=== PATIENT | male | born 1975 | race Two or more races ===

== ENCOUNTER 2019-09-25 09:04 | Day surgery (SDC) | payer OTHER ==
[2019-09-25] VITALS (13 sets, daily range): BP systolic 132–161; BP diastolic 76–102
[~2019-09-25] VITALS: Ht 177.8 cm; Wt 84.4 kg
--- NOTE | 2019-09-25 07:47 | Pre-Procedure Note/Attestation ---
Pre-Procedure Note/Attestation Complete Prior to Procedure Planned Procedure: left Procedure Narrative: clavicle orif Indications for Procedure Pre-Operative Diagnosis: left clavicle fracture Attestation I attest that I discussed the nature of the procedure; its benefits; risks and complications; and alternatives (and the risks and benefits of such alternatives ), prior to the procedure, with the patient (or the patient's legal sales representative door to door). I attest that, if there was a reasonable possibility of needing a blood transfusion, the patient (or the patient's legal sales representative door to door) was given the [facility] standardized written summary, pursuant to the [place] Blood Safety Act ([place] Health and Safety Code # 1645, as amended). I attest that I re-evaluated the patient just prior to the surgery and that there has been no change in the patient's H&P, except as documented below: Blake Chappell MD Sep 25, 2019 07:47
--- NOTE | 2019-09-25 07:48 | Operative Note - PDOC ---
Operative Note Operative Note Pre-op Diagnosis: left clavicle fracture Procedure: see op report Post-op Diagnosis: same as pre-op plus Operative Findings: consistent w/pre-op dx studies Anesthesia: regional Specimen: none Complications: none Condition: stable Estimated Blood Loss: none Implant(s) used?: Yes Blake Chappell MD Sep 25, 2019 07:48
[~2019-09-25 09:04] MED LIST: HYDROcodone/Acetamin 5/325 tab ORAL PRN; HYDROmorphone 1mg/ml Carpuject SUBQ PRN; PROAIR HFA8.5 GM INH; Tylenol #3 tab (300mg/30mg) ORAL PRN; ceFAZolin 1gm IVPB IVPB ONE; celeBREX 200mg Cap **SURGERY PATIENTS ONLY ORAL ONE; oxyCONTIN 20mg tab ORAL ONE
[2019-09-25] MEDS ORDERED: NS Irrig 1000ml ONE (09:05)
[2019-09-25] MEDS ORDERED: Sterile Water Irrig 1000ml IRRIG ONE (09:05)
[2019-09-25] MEDS ORDERED: oxyCONTIN 20mg tab ORAL ONE (09:38)
[2019-09-25] MEDS ORDERED: celeBREX 200mg Cap **SURGERY PATIENTS ONLY ORAL ONE (09:38)
[2019-09-25] MEDS ORDERED: fentaNYL 100 mcg/2 mL IV ONE (10:27)
[2019-09-25] MEDS ORDERED: Midazolam 2mg/2ml Inj ONE (10:28)
[2019-09-25] MEDS ORDERED: Propofol 200mg/20ml IV ONE (10:31)
[2019-09-25] MEDS ORDERED: Lidocaine 1% MPF 10mg/ml 5ml ONE (10:31)
[2019-09-25] MEDS ORDERED: Bacitracin 50000 Units Vial ONE (11:05)
[2019-09-25] MEDS ORDERED: NeoSporin Gu Irrig 1ml Amp IRRIG ONE (11:05)
[2019-09-25] MEDS ORDERED: Lidocaine 1% 10mg/ml/Epi 0.005mg/ml 30ml vial INJ ONE (11:05)
--- NOTE | 2019-09-25 12:12 | Anethesia Preoperative Eval ---
Anesthesia Pre-op PMH/ROS General Date of Evaluation: Sep 25, 2019 Time of Evaluation: 11:05 Anesthesiologist: Jess ASA Score: ASA 2 Mallampati Score Class I : Soft palate, uvula, fauces, pillars visible Class II: Soft palate, uvula, fauces visible Class III: Soft palate, base of uvula visible Class IV: Only hard plate visible Mallampati Classification: Class II Surgeon: Ta Diagnosis: L clavicle Fx Surgical Procedure: ORIF of L clavicle Fx Anesthesia History: none Family History: no anesthesia problems Allergies: Coded Allergies: No Known Allergies (Unverified , 09/23/19) Medications: see eMAR Patient NPO?: Yes Past Medical History Cardiovascular: Denies: HTN, CAD, AR, valve dz, arrhythmia, other Pulmonary: Reports: asthma - mild stable on inhaler; Denies: COPD, JOHN, other Gastrointestinal/Genitourinary: Reports: GERD; Denies: CRI, ESRD, other Neurologic/Psychiatric: Denies: dementia, CVA, depression/anxiety, TIA, other Endocrine: Denies: DM, hypothyroidism, steroids, other HEENT: Denies: cataract (L), cataract (R), glaucoma, LITTLE TRAVERSE (L), LITTLE TRAVERSE (R), other Hematology/Immune: Denies: anemia, DVT, bleeding disorder, other Musculoskeletal/Integumentary: Denies: OA, RA, DJD, DDD, edema, other PMH Narrative: as above PSxH Narrative: R eye Sx as a child Anesthesia Pre-op Phys. Exam Physician Exam Last Vital Signs Date Time Temp Pulse Resp B/P (MAP) Pulse Ox O2 Delivery O2 Flow Rate FiO2 09/25/19 09:42 Room Air 09/25/19 09:40 98.0 71 18 142/76 99 Constitutional: NAD Neurologic: CN 2-12 intact Cardiovascular: RRR, no M/R/G Respiratory: CTA Gastrointestinal: S/NT/ND Airway Exam Mallampati Score: Class II MO: full Neck: flexible ROM: full Teeth: intact Dentures: no upper, no lower Anesthesia Pre-op A/P Labs see chart Studies Pre-op Studies: EKG - NSR Risk Assessment & Plan Assessment: ASA 2 Plan: GA with LMA brachial plexus block for p/op pain control Status Change Before Surgery: No Pre-Antibiotics Drug: Ancef 2gr. Given Within 1 Hr of Incision: Yes Time Given: 11:54 Mitesh Mercado MD Sep 25, 2019 12:12
[2019-09-25] MEDS ORDERED: LR 1000ml 1,000 ML IVLG SCH (12:13)
[2019-09-25] MEDS ORDERED: DiphenhydrAMINE 50mg/ml Inj IVP PRN (12:15)
[2019-09-25] MEDS ORDERED: Ketorolac 30mg Inj IV PRN (12:15)
[2019-09-25] MEDS ORDERED: Meperidine 25mg/0.5ml Inj (FOR RIGORS ONLY) IV PRN (12:15)
[2019-09-25] MEDS ORDERED: Acetaminophen (Non formulary) 100 ML IV ONE (12:15)
[2019-09-25] MEDS ORDERED: Morphine Sulfate 10mg/ml Inj ONE (12:19)
[2019-09-25] MEDS ORDERED: Sodium Chloride 10ml vial INJ ONE (12:20)
[2019-09-25] MEDS ORDERED: Ketorolac 30mg Inj ONE (12:20)
--- NOTE | 2019-09-25 13:12 | Immediate Post-Op Evaluation ---
Immediate Post-Op Evalulation Immediate Post-Op Evalulation Procedure: ORIF of L clavicle Fx Date of Evaluation: Sep 25, 2019 Time of Evaluation: 13:11 IV Fluids: 800 Blood Products: none Estimated Blood Loss: <50 Urinary Output: none Blood Pressure Systolic: 148 Blood Pressure Diastolic: 72 Pulse Rate: 68 Respiratory Rate: 20 O2 Sat by Pulse Oximetry: 99 Temperature (Fahrenheit): 98.4 Pain Score (1-10): 1 Nausea: No Vomiting: No Complications none Patient Status: reacts, patent, none Hydration Status: adequate Mitesh Mercado MD Sep 25, 2019 13:11
--- NOTE | 2019-09-25 14:03 | 48 Hour Post Anesthesia Eval ---
Post Anesthesia Evaluation Procedure: ORIF of L clavicle Fx Date of Evaluation: Sep 25, 2019 Time of Evaluation: 14:01 Blood Pressure Systolic: 142 0: 86 Pulse Rate: 74 Respiratory Rate: 22 Temperature (Fahrenheit): 97.6 O2 Sat by Pulse Oximetry: 98 Airway: patent Nausea: No Vomiting: No Pain Intensity: 2 Hydration Status: adequate Cardiopulmonary Status: stable Mental Status/LOC: patient returned to baseline Follow-up Care/Observations: n/a Post-Anesthesia Complications: none Follow-up care needed: ready to discharge Mitesh Mercado MD Sep 25, 2019 14:02
--- NOTE | 2019-09-25 14:23 | Diagnostic Imaging Report ---
INDICATION: Pain, intraoperative TECHNIQUE: Intraoperative imaging Fluoroscopy time: 6 seconds Total dose: 0.30762 mGym2 Total number of images: 2 COMPARISON: None FINDINGS: Intraoperative images document surgical repair with side plate and screws of mid shaft left clavicular fracture IMPRESSION: Intraoperative imaging, as described
[2019-09-25] MEDS ORDERED: D5 1/2NS 1,000 ML IV SCH (18:00)
--- NOTE | 2019-09-25 19:30 | Operative Note - Dictated ---
DATE OF OPERATION: 09/25/2019 PREOPERATIVE DIAGNOSIS: Left displaced midshaft clavicle fracture. POSTOPERATIVE DIAGNOSIS: Left displaced midshaft clavicle fracture. PROCEDURE: Open reduction internal fixation of left midshaft displaced clavicle fracture. SURGEON: Blake Chappell M.D. ANESTHESIA: LMA. INDICATION FOR PROCEDURE: Patient is a pleasant gentleman, who has had a significant injury to the left ankle. He had displaced clavicle fracture with significant displacement indicative of operative fixation. Risks, limitations, expectations, and complications of procedure were discussed in detail. All questions addressed. DESCRIPTION OF PROCEDURE: After informed consent was obtained, patient was brought to operating room. Patient was placed under general anesthesia. Patient then carefully placed in beach chair position. Left shoulder was prepped and draped in a sterile manner. At this point, the medial and lateral aspects of the fracture was identified. This skin was incised. I tried to use straight lines incorporating his extensive tattoos. A full-thickness subcutaneous tissue flaps were created. At this point, the trapezius and deltoid were peeled off the medial and lateral fragments of the fracture and making sure to stay right on the bone. Subperiosteal dissection was performed on the distal ends. There was significant muscle that was interposed between the fracture fragments significant overlapping. Once the ends of the fracture were gently mobilized, reduction maneuver was performed. An 8-hole plate was selected and cortical screws were placed on synch down the plate. The imaging showed good anatomic reduction. At this point, additional 4 cortical screws were placed. Imaging studies showed good placement and length of the screws. At this point, the wound was copiously irrigated. The fascia was approximated with #1 Vicryl suture. Subcutaneous tissue was approximated with 2-0 Vicryl suture. Skin was closed with 3-0 Monocryl sutures. A Dermabond and compression dressing was applied. Patient was awoken and taken to recovery room with stable signs. ESTIMATED BLOOD LOSS: 25 mL. COMPLICATIONS: None. SPECIMENS: None. IMPLANTS: Include Jan clavicular plate with 6 cortical screws. Blake Chappell M.D. DR: ALBA JOB#: [id number] CC:
== END 2019-09-25 15:30 | disposition home or self-care (01) ==
LOC: SUR 09:04
DX: S42.022A Displaced fracture of shaft of left clavicle, initial encounter for closed fracture (principal); X58.XXXA Exposure to other specified factors, initial encounter; Y92.9 Unspecified place or not applicable; K21.9 Gastro-esophageal reflux disease without esophagitis
CPT/HCPCS: 23515; 73000; 76000; C1713; J0131; J0690; J1885; J2250; J2270; J2405; J2704; J3010; 94003; 94150